=== PATIENT | female | born 1985 | race Caucasian/White ===

== ENCOUNTER 2018-06-20 21:00 | Emergency (ER) | payer MEDICAID ==
--- NOTE | 2018-06-20 22:42 | C.PDOC ---
History Of Present Illness Patient presents with abdominal pain and nausea for the past week. LMP was 05/09/18, she is not sure if she is . Denies fever, chills, or vomiting. Time Seen by Provider: 06/20/18 22:42 Chief Complaint (Nursing): Abdominal Pain History Per: Patient History/Exam Limitations: no limitations Onset/Duration Of Symptoms: Days (1 week) Current Symptoms Are (Timing): Still Present Severity: Moderate Pain Scale Rating Of: 4 Location Of Pain/Discomfort: Diffuse Quality Of Discomfort: Unable To Describe Associated Symptoms: Nausea. denies: Fever, Chills, Vomiting Exacerbating Factors: None Alleviating Factors: None Recent travel outside of the [place]: No Abnormal Vaginal Bleeding: No Past Medical History Reviewed: Historical Data, Nursing Documentation, Vital Signs Vital Signs: Last Vital Signs Temp 98.7 F 06/20/18 22:08 Pulse 88 06/20/18 22:08 Resp 20 06/20/18 22:08 BP 105/66 06/20/18 22:08 Pulse Ox 100 06/20/18 22:08 Family History: States: No Known Family Hx - Social History Hx Alcohol Use: No Hx Substance Use: No Review Of Systems Constitutional: Negative for: Fever, Chills Cardiovascular: Negative for: Chest Pain, Palpitations Respiratory: Negative for: Cough, Shortness of Breath Gastrointestinal: Positive for: Nausea, Abdominal Pain. Negative for: Vomiting Neurological: Negative for: Weakness, Numbness Physical Exam - Physical Exam Appears: Non-toxic Skin: Warm, Dry Head: Normacephalic Oral Mucosa: Moist Chest: Symmetrical, No Tenderness Cardiovascular: Rhythm Regular Respiratory: No Rales, No Rhonchi, No Wheezing Gastrointestinal/Abdominal: Soft, Tenderness (Mild diffuse), No Guarding, No Rebound Back: No CVA Tenderness Neurological/Psych: Oriented x3 ED Course And Treatment - Laboratory Results Result Diagrams: 06/20/18 23:05 06/20/18 23:05 O2 Sat by Pulse Oximetry: 100 (Room air) Pulse Ox Interpretation: Normal Progress Note: POC positive, blood work and urinalysis ordered. Reevaluation Time: 03:20 Reassessment Condition: Improved Medical Decision Making Medical Decision Making: Upon provider reevaluation patient is feeling better, is medically stable, and requires no further treatment in the ED at this time. Patient will be discharged home . Counseling was provided and all questions were answered regarding diagnosis and need for follow up with dr morris. There is agreement to discharge plan. Return if symptoms persist or worsen. 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 I have reviewed the chart and agree that the record accurately reflects my personal performance of the history, physical exam, me dical decision making, and the department course for this patient. I have also personally directed, reviewed, and agree with the discharge instructions and disposition.
[2018-06-20 22:53] LABS: HCG,QUALITATIVE URINE POSITIVE (NEGATIVE)
[2018-06-20 22:56] LABS: SQUAMOUS EPITHIAL 3 /hpf (0-5); URINE BACTERIA OCC (<OCC); URINE BILIRUBIN NEGATIVE (NEGATIVE); URINE BLOOD NEGATIVE (NEGATIVE); URINE CLARITY Clear (Clear); URINE COLOR Yellow (YELLOW); URINE GLUCOSE (UA) NORMAL (Normal); URINE LEUKOCYTE ESTERASE TRACE Leu/uL (Negative); URINE PROTEIN 1+ mg/dL (NEGATIVE)
[2018-06-20 23:08] LABS: BASO % 0.4 % (0.0-2.0); EOS # 0.1 K/uL (0.0-0.7); HEMOGLOBIN 11.5 g/dL (11.0-16.0); LYMPH # 1.9 K/uL (1.0-4.3); LYMPH % 26.8 % (20.0-40.0); MEAN CORPUSCULAR HEMOGLOBIN 29.9 pg (27.0-31.0); MEAN CORPUSCULAR HGB CONC 34.3 g/dL (33.0-37.0); MEAN PLATELET VOLUME 10.2 fL (7.2-11.7); MONO # 0.4 K/uL (0.0-0.8); NEUT # 4.8 K/uL (1.8-7.0); NEUT % 65.8 % (50.0-75.0); RBC 3.84 Mil/uL (3.80-5.20); RED CELL DISTRIBUTION WIDTH 13.3 % (11.5-14.5); WHITE BLOOD COUNT 7.2 K/uL (4.8-10.8)
[2018-06-20 23:15] LABS: MEAN CELL VOLUME 87.2 fL (81.0-99.0)
[2018-06-20 23:21] LABS: INR 1.1; PROTHROMBIN TIME 12.1 SECONDS (9.7-12.2)
[2018-06-20 23:23] LABS: ALB/GLOB RATIO 1.7 (1.0-2.1); ALBUMIN 4.5 g/dL (3.5-5.0); ALT/SGPT 42 U/L (9-52); AST/SGOT 38 U/L (14-36); BLOOD UREA NITROGEN 13 mg/dL (7-17); GFR NON-AFRICAN AMERICAN > 60; LIPASE 49 U/L (23-300)
[2018-06-21 03:19] VITALS: O2SAT 100
[2018-06-21 04:43] VITALS: BP 100/67; PULSE 85; RESP 16; TEMP 98.2
--- NOTE | 2018-06-21 11:42 | US ---
Date of service: 06/21/2018 Indication: abd pain, hcg [id number] Comparison: None available Technique: Real-time transabdominal pelvic ultrasound was performed. In addition a transvaginal pelvic ultrasound was necessary to better depict pelvic anatomy. Findings: The uterus measures approximately 10.3 x 6.9 x 7.8 cm. Anteverted. Cervix length measures approximately 3.2 cm. There is a single intrauterine fetus present. 3 mm yolk sac. The gestational sac measures 2.2 cm and is compatible with a gestational age of 6 weeks 5 days. The crown-rump length measures 0.6 cm and is compatible with a gestational age of 6 weeks 3 days. 0.9 x 0.8 x 1.0 cm subchorionic hemorrhage. There is heart motion which measured 115.9 BPM. The right ovary measures 3.8 x 2.1 x 3.0 cm. The left ovary measures 3.1 x 2.0 x 2.5 cm. Blood flow was demonstrated to both ovaries. Small pelvic free fluid. Impression: Live single intrauterine with estimated gestational age 6 weeks 5 days by gestational sac calculation and 6 weeks 3 days by crown-rump length calculation. heart rate 115.9 bpm. 0.9 x 0.8 x 1.0 cm subchorionic hemorrhage. Advise an anomaly screen at 16-18 weeks gestational age Preliminary impression was provided by [employer].
== END 2018-06-21 03:25 | disposition home or self-care (01) ==
LOC: C.ER 21:00
DX: O20.9 Hemorrhage in early pregnancy, unspecified (principal); Z3A.01 Less than 8 weeks gestation of pregnancy